=== PATIENT | female | born 1995 | race Caucasian/White ===

== ENCOUNTER 2018-09-15 17:59 | Emergency (ER) | payer OTHER | END 2018-09-15 22:15 | disposition home or self-care (01) | LOC: ERS 17:59 | DX: O99.512 Diseases of the respiratory system complicating pregnancy, second trimester (principal); J02.9 Acute pharyngitis, unspecified; Z87.891 Personal history of nicotine dependence; Z71.6 Tobacco abuse counseling; Z3A.28 28 weeks gestation of pregnancy | CPT/HCPCS: 87081; 87430; 99406 ==

== ENCOUNTER 2019-01-29 13:48 | Emergency (ER) | payer OTHER, SELFPAY ==
[2019-01-29] MEDS ORDERED: Bacitracin 1 PK ONE (14:50)
== END 2019-01-29 15:00 | disposition home or self-care (01) ==
LOC: ERS 13:48
DX: S01.21XA Laceration without foreign body of nose, initial encounter (principal); Z87.891 Personal history of nicotine dependence; W22.8XXA Striking against or struck by other objects, initial encounter
CPT/HCPCS: 99282